=== PATIENT | female | born 1970 | race Caucasian/White ===

== ENCOUNTER 2019-07-15 11:43 | Emergency (ER) | payer BC ==
[2019-07-15] MEDS ORDERED: Sodium Chloride 0.9% 2.5 ML Syringe FLUSH PRN (11:50)
[2019-07-15] MEDS ORDERED: Sodium Chloride 0.9% 10 ML Syringe FLUSH PRN (11:50)
[2019-07-15] MEDS ORDERED: Ketorolac 30 MG/ML SDV IVPUSH ONE (12:18)
[2019-07-15] MEDS ORDERED: Sodium Chloride 0.9% 1,000 ML IV ONE (12:18)
[2019-07-15] MEDS ORDERED: Ondansetron 4 MG/2 ML SDV IVPUSH ONE (12:18)
--- NOTE | 2019-07-15 12:18 | EDM.PDOC ---
ED HPI GENERAL MEDICAL PROBLEM - General Chief Complaint: Back Pain or Injury Stated Complaint: RT SIDE PAIN GOING INTO BACK Time Seen by Provider: 07/15/19 11:46 Source of Information: Reports: Patient History Limitations: Reports: No Limitations - History of Present Illness INITIAL COMMENTS - FREE TEXT/NARRATIVE: HISTORY AND PHYSICAL: History of present illness: Patient is a 48-year-old female presents to the ED today with concern of right sided flank pain. Patient states she's had this issue off and on over the course of several months but over the past 2 days has had an increase in pain and rates it a 9 out of 10. Patient states she's been to several walk-in clinics and has had several chest x-rays which of come back unremarkable. Patient states over the past 2 days the pain is increased and is worsening. Patient states she is woke up in tears due to the pain. Patient states she has a history of hypertension but denies any other health history. Patient denies fever, chills, chest pain, shortness of breath, or cough. Denies headache, neck stiff ness, change in vision, syncope, or near syncope. Denies nausea, vomiting, diarrhea, constipation, or dysuria. Has not noted any blood in urine or stool. Patient has been eating and drinking appropriately. Review of systems: As per history of present illness and below otherwise all systems reviewed and negative. Past medical history: As per history of present illness and as reviewed below otherwise noncontributory. Surgical history: As per history of present illness and as reviewed below otherwise noncontributory. Social history: See social history for further information Family history: As per history of present illness and as reviewed below otherwise noncontributory. Physical exam: General: Patient is alert, oriented, and in no acute distress. Patient sitting comfortably on exam table. HEENT: Atraumatic, normocephalic, pupils equal and reactive bilaterally, negative for conjunctival pallor or scleral icterus, mucous membranes moist, TMs normal bilaterally, throat clear, neck supple, nontender, trachea midline. No drooling or trismus noted. No meningeal signs. No hot potato voice noted. Lungs: Clear to auscultation, breath sounds equal bilaterally, chest nontender. Heart: S1S2, regular rate and rhythm without overt murmur Abdomen: Soft, nondistended. Mild pain of RUQ without guarding. Negative for masses or hepatosplenomegaly. Positive for costovertebral tenderness of the right. Pelvis: Stable nontender. Genitourinary: Deferred. Rectal: Deferred. Skin: Intact, warm, dry. No lesions or rashes noted. Extremities: Atraumatic, negative for cords or calf pain. Neurovascular unremarkable. Neuro: Awake, alert, oriented. Cranial nerves II through XII unremarkable. Cerebellum unremarkable. Motor and sensory unremarkable throughout. Exam nonfocal. Notes: Discussed the importance for follow-up with general surgery and urology as well as a PCP. Voices understanding and is agreeable to plan of care. Denies any further questions or concerns at this time. Diagnostics: CBC, CMP, UA, Lipase, EKG, Chest XR, RUQ ultrasound, Abd/Pelvic CT Therapeutics: NS, Toradol, Zofran Prescription: None Impression: RUQ pain Cholelithiasis Hematuria Plan: 1. You can alternate ibuprofen and Tylenol as directed for pain and discomfort. 2. Follow-up with general surgery and urology/primary care provider as discussed. Return to the ED as needed and as discussed. Definitive disposition and diagnosis as appropriate pending reevaluation and review of above. right middle back Pain Score (Numeric/FACES): 6 - Related Data Allergies Allergy/AdvReac Type Severity Reaction Status Date / Time cyclobenzaprine Allergy Anaphylactic Verified 07/15/19 11:50 [From Flexeril] Shock Home Meds: Home Meds Olmesartan [Benicar] 20 mg PO DAILY 07/15/19 [History] Past Medical History Cardiovascular History: Reports: Hypertension Gastrointestinal History: Reports: GERD Other Musculoskeletal History: right wrist surgery - Infectious Disease History Infectious Disease History: Reports: Chicken Pox - Past Surgical History HEENT Surgical History: Reports: Tonsillectomy GI Surgical History: Reports: Hernia, Abdominal Social & Family History - Family History Family Medical History: Noncontributory - Tobacco Use Smoking Status *Q: Never Smoker - Recreational Drug Use Recreational Drug Use: No ED ROS GENERAL - Review of Systems Review Of Systems: ROS reveals no pertinent complaints other than HPI. ED EXAM, GENERAL - Physical Exam Exam: See Below (See dictation) Course - Vital Signs Last Recorded V/S: Last Vital Signs Temp 36.6 C 07/15/19 11:52 Pulse 74 07/15/19 13:45 Resp 18 07/15/19 13:45 BP 151/84 H 07/15/19 13:45 Pulse Ox 97 07/15/19 13:45 - Orders/Labs/Meds Orders: Active Orders 24 hr Category Date Time Status EKG Documentation Completion [RC] STAT Care 07/15/19 11:50 Active Sodium Chloride 0.9% [Saline Flush] Med 07/15/19 11:50 Active 10 ml FLUSH ASDIRECTED PRN Sodium Chloride 0.9% [Saline Flush] Med 07/15/19 11:50 Active 2.5 ml FLUSH ASDIRECTED PRN Saline Lock Insert [OM.PC] Stat Oth 07/15/19 11:50 Ordered Medication Orders Sodium Chloride (Saline Flush) 10 ml FLUSH ASDIRECTED PRN PRN Reason: Keep Vein Open Last Admin: 07/15/19 12:32 Dose: 10 ml Sodium Chloride (Saline Flush) 2.5 ml FLUSH ASDIRECTED PRN PRN Reason: Keep Vein Open Last Admin: 07/15/19 12:32 Dose: 2.5 ml Labs: Laboratory Tests 07/15/19 07/15/19 07/15/19 Range/Units 12:10 12:10 12:20 WBC 5.65 (4.0-11.0) K/uL RBC 4.44 (4.30-5.90) M/uL Hgb 13.1 (12.0-16.0) g/dL Hct 38.3 (36.0-46.0) % MCV 86.3 (80.0-98.0) fL MCH 29.5 (27.0-32.0) pg MCHC 34.2 (31.0-37.0) g/dL RDW Std Deviation 45.5 (28.0-62.0) fl RDW Coeff of Arron 15 (11.0-15.0) % Plt Count 346 (150-400) K/uL MPV 10.70 (7.40-12.00) fL Neut % (Auto) 56.6 (48.0-80.0) % Lymph % (Auto) 30.3 (16.0-40.0) % [place] % (Auto) 9.6 (0.0-15.0) % Eos % (Auto) 3.0 (0.0-7.0) % Baso % (Auto) 0.5 (0.0-1.5) % Neut # (Auto) 3.2 (1.4-5.7) K/uL Lymph # (Auto) 1.7 (0.6-2.4) K/uL [place] # (Auto) 0.5 (0.0-0.8) K/uL Eos # (Auto) 0.2 (0.0-0.7) K/uL Baso # (Auto) 0.0 (0.0-0.1) K/uL Nucleated RBC % 0.0 /100WBC Nucleated RBCs # 0 K/uL Sodium 142 (136-145) mmol/L Potassium 4.2 (3.5-5.1) mmol/L Chloride 106 (98-107) mmol/L Carbon Dioxide 23.5 (21.0-32.0) mmol/L BUN 10 (7.0-18.0) mg/dL Creatinine 0.8 (0.6-1.0) mg/dL Est Cr Clr Drug Dosing 73.46 mL/min Estimated GFR (MDRD) > 60.0 ml/min Glucose 100 (74-106) mg/dL Calcium 9.0 (8.5-10.1) mg/dL Total Bilirubin 0.4 (0.2-1.0) mg/dL AST 9 L (15-37) IU/L ALT 20 (14-63) IU/L Alkaline Phosphatase 75 (46-116) U/L Total Protein 6.9 (6.4-8.2) g/dL Albumin 3.5 (3.4-5.0) g/dL Globulin 3.4 (2.6-4.0) g/dL Albumin/Globulin Ratio 1.0 (0.9-1.6) Lipase 87 (73-393) U/L Urine Color YELLOW Urine Appearance CLEAR Urine pH 5.5 (5.0-8.0) Ur Specific [place] 1.015 (1.001-1.035) Urine Protein NEGATIVE (NEGATIVE) mg/dL Urine Glucose (UA) NEGATIVE (NEGATIVE) mg/dL Urine Ketones NEGATIVE (NEGATIVE) mg/dL Urine Occult Blood LARGE H (NEGATIVE) Urine Nitrite NEGATIVE (NEGATIVE) Urine Bilirubin NEGATIVE (NEGATIVE) Urine Urobilinogen 0.2 (<2.0) EU/dL Ur Leukocyte Esterase NEGATIVE (NEGATIVE) Urine RBC 5-10 (0-2/HPF) Urine WBC 1-2 (0-5/HPF) Ur Epithelial Cells OCCASIONAL (NONE-FEW) Urine Bacteria RARE (NEGATIVE) Urine HCG, Qual (NEGATIVE) 07/15/19 Range/Units 12:20 WBC (4.0-11.0) K/uL RBC (4.30-5.90) M/uL Hgb (12.0-16.0) g/dL Hct (36.0-46.0) % MCV (80.0-98.0) fL MCH (27.0-32.0) pg MCHC (31.0-37.0) g/dL RDW Std Deviation (28.0-62.0) fl RDW Coeff of Arron (11.0-15.0) % Plt Count (150-400) K/uL MPV (7.40-12.00) fL Neut % (Auto) (48.0-80.0) % Lymph % (Auto) (16.0-40.0) % [place] % (Auto) (0.0-15.0) % Eos % (Auto) (0.0-7.0) % Baso % (Auto) (0.0-1.5) % Neut # (Auto) (1.4-5.7) K/uL Lymph # (Auto) (0.6-2.4) K/uL [place] # (Auto) (0.0-0.8) K/uL Eos # (Auto) (0.0-0.7) K/uL Baso # (Auto) (0.0-0.1) K/uL Nucleated RBC % /100WBC Nucleated RBCs # K/uL Sodium (136-145) mmol/L Potassium (3.5-5.1) mmol/L Chloride (98-107) mmol/L Carbon Dioxide (21.0-32.0) mmol/L BUN (7.0-18.0) mg/dL Creatinine (0.6-1.0) mg/dL Est Cr Clr Drug Dosing mL/min Estimated GFR (MDRD) ml/min Glucose (74-106) mg/dL Calcium (8.5-10.1) mg/dL Total Bilirubin (0.2-1.0) mg/dL AST (15-37) IU/L ALT (14-63) IU/L Alkaline Phosphatase (46-116) U/L Total Protein (6.4-8.2) g/dL Albumin (3.4-5.0) g/dL Globulin (2.6-4.0) g/dL Albumin/Globulin Ratio (0.9-1.6) Lipase (73-393) U/L Urine Color Urine Appearance Urine pH (5.0-8.0) Ur Specific [place] (1.001-1.035) Urine Protein (NEGATIVE) mg/dL Urine Glucose (UA) (NEGATIVE) mg/dL Urine Ketones (NEGATIVE) mg/dL Urine Occult Blood (NEGATIVE) Urine Nitrite (NEGATIVE) Urine Bilirubin (NEGATIVE) Urine Urobilinogen (<2.0) EU/dL Ur Leukocyte Esterase (NEGATIVE) Urine RBC (0-2/HPF) Urine WBC (0-5/HPF) Ur Epithelial Cells (NONE-FEW) Urine Bacteria (NEGATIVE) Urine HCG, Qual NEGATIVE (NEGATIVE) Meds: Medications Generic Name Dose Route Start Last Admin Trade Name Freq PRN Reason Stop Dose Admin Sodium Chloride 10 ml 07/15/19 11:50 07/15/19 12:32 Saline Flush FLUSH 10 ml ASDIRECTED PRN Administration Keep Vein Open Sodium Chloride 2.5 ml 07/15/19 11:50 07/15/19 12:32 Saline Flush FLUSH 2.5 ml ASDIRECTED PRN Administration Keep Vein Open Discontinued Medications Generic Name Dose Route Start Last Admin Trade Name Freq PRN Reason Stop Dose Admin Sodium Chloride 1,000 mls @ 999 mls/hr 07/15/19 12:18 07/15/19 12:28 Normal Saline IV 07/15/19 13:18 999 mls/hr STAT ONE Administration Ketorolac Tromethamine 30 mg 07/15/19 12:18 07/15/19 12:31 Toradol IVPUSH 07/15/19 12:19 30 mg ONETIME ONE Administration Ondansetron HCl 4 mg 07/15/19 12:18 07/15/19 12:30 Zofran IVPUSH 07/15/19 12:19 4 mg ONETIME ONE Administration Departure - Departure Time of Disposition: 14:25 Disposition: Home, Self-Care 01 Clinical Impression: Right upper quadrant pain Cholelithiasis Qualifiers: Cholelithiasis location: gallbladder Cholecystitis presence: without cholecystitis Biliary obstruction: with biliary obstruction Qualified Code(s): K80.21 - Calculus of gallbladder without cholecystitis with obstruction Hematuria Qualifiers: Hematuria type: asymptomatic microscopic Qualified Code(s): R31.21 - Asymptomatic microscopic hematuria - Discharge Information Referrals: PCP,Not In Area [Primary Care Provider] - Forms: ED Department Discharge Additional Instructions: The following information is given to patients seen in the emergency department who are being discharged to home. This information is to outline your options for follow-up care. We provide all patients seen in our emergency department with a follow-up referral. The need for follow-up, as well as the timing and circumstances, are variable depending upon the specifics of your emergency department visit. If you don't have a primary care physician on staff, we will provide you with a referral. We always advise you to contact your personal physician following an emergency department visit to inform them of the circumstance of the visit and for follow-up with them and/or the need for any referrals to a consulting specialist. The emergency department will also refer you to a specialist when appropriate. This referral assures that you have the opportunity for follow-up care with a specialist. All of these measure are taken in an effort to provide you with optimal care, which includes your follow-up. Under all circumstances we always encourage you to contact your private physician who remains a resource for coordinating your care. When calling for follow-up care, please make the office aware that this follow-up is from your recent emergency room visit. If for any reason you are refused follow-up, please contact the [facility] Emergency Department at and asked to speak to the emergency department charge nurse. [facility] [id number] [address] [facility] [address] [place] [address] [facility] Special[facility] - General Surgery Professional Building [address], [address] [place] [address] [facility] - Urology [address] [place] [id number] 1. You can alternate ibuprofen and Tylenol as directed for pain and discomfort. 2. Follow-up with general surgery and urology/primary care provider as discussed. Return to the ED as needed and as discussed. - My Orders Last 24 Hours: My Active Orders 07/15/19 11:50 EKG Documentation Completion [RC] STAT Sodium Chloride 0.9% [Saline Flush] 10 ml FLUSH ASDIRECTED PRN Sodium Chloride 0.9% [Saline Flush] 2.5 ml FLUSH ASDIRECTED PRN Saline Lock Insert [OM.PC] Stat - Assessment/Plan Last 24 Hours: My Active Orders 07/15/19 11:50 EKG Documentation Completion [RC] STAT Sodium Chloride 0.9% [Saline Flush] 10 ml FLUSH ASDIRECTED PRN Sodium Chloride 0.9% [Saline Flush] 2.5 ml FLUSH ASDIRECTED PRN Saline Lock Insert [OM.PC] Stat
[2019-07-15 12:43] LABS: BLOOD UREA NITROGEN,BUN 10 mg/dL (7.0-18.0); CARBON DIOXIDE,CO2 23.5 mmol/L (21.0-32.0); CHLORIDE,CL 106 mmol/L (98-107); GLUCOSE RANDOM 100 mg/dL (74-106); POTASSIUM,K 4.2 mmol/L (3.5-5.1); SODIUM,NA 142 mmol/L (136-145)
--- NOTE | 2019-07-15 14:00 | CR ---
Indication: Shortness of breath. Technique: PA and lateral views the chest were obtained. Comparison: None Findings: The heart is normal in size. The lungs are clear. No infiltrate, pleural effusion, or pneumothorax is identified. Impression: No acute cardiopulmonary process. Dictated by Ondina Nur MD @ Jul 15 2019 1:59PM Signed by Dr. Ondina Nur @ Jul 15 2019 1:59PM
--- NOTE | 2019-07-15 14:07 | CT ---
INDICATION: Right upper quadrant abdominal pain. TECHNIQUE: Noncontrast CT of the abdomen and pelvis. COMPARISON: Correlation is made with a right upper quadrant ultrasound from the same date. FINDINGS: The included lung bases are clear. The unenhanced liver is negative for masses or biliary ductal dilatation. The spleen is not enlarged. The unenhanced pancreas, adrenal glands, and kidneys are within normal limits. Tiny calcification posterior gallbladder image 52 likely a stone. Normal caliber abdominal aorta and iliac arteries. Normal inferior vena cava. Normal appendix. No bowel obstruction ileus. No ascites or lymphadenopathy. The uterus, urinary bladder, and both adnexa are normal. Calcified pelvic phleboliths. Normal appendix. IMPRESSION: 1. Tiny stone within the gallbladder. 2. No acute inflammatory process identified. Please note that all CT scans at this facility use dose modulation, iterative reconstruction, and/or weight-based dosing when appropriate to reduce radiation dose to as low as reasonably achievable. Dictated by Abraham Tavarez MD @ Jul 15 2019 2:00PM Signed by Dr. Abraham Tavarez @ Jul 15 2019 2:05PM
--- NOTE | 2019-07-15 14:09 | US ---
INDICATION: Right upper quadrant abdominal pain. TECHNIQUE: Right upper quadrant ultrasound. FINDINGS: Single tiny echogenic focus along the gallbladder wall reportedly mobile. No sonographic Olmedo`s sign. Normal common bile duct of 4.4 mm. The liver, visualized pancreas, and right kidney are within normal limits. The right kidney measures 12.6 cm. The pancreatic tail is obscured by bowel gas. No right upper quadrant ascites. IMPRESSION: Cholelithiasis. A single stone is identified in the gallbladder. The examination is otherwise negative. Dictated by Abraahm Tavarez MD @ Jul 15 2019 2:06PM Signed by Dr. Abraham Tavarez @ Jul 15 2019 2:07PM
== END 2019-07-15 14:46 | disposition home or self-care (01) ==
LOC: MW.ED 11:43
DX: K80.21 Calculus of gallbladder without cholecystitis with obstruction (principal); R31.21 Asymptomatic microscopic hematuria; I10 Essential (primary) hypertension; Z88.8 Allergy status to other drugs, medicaments and biological substances; Z79.899 Other long term (current) drug therapy
CPT/HCPCS: 36415; 71046; 74176; 76705; 80053; 81001; 81025; 83690; 85025; 93005; 96361; 96374; 96375; 99284; J1885; J2405; J7040

== ENCOUNTER 2021-02-27 12:10 | Emergency (ER) | payer OTHER ==
--- NOTE | 2021-02-27 12:30 | EDM.PDOC ---
ED HPI GENERAL MEDICAL PROBLEM - General Chief Complaint: Respiratory Problem Stated Complaint: COLD Time Seen by Provider: 02/27/21 12:19 Source of Information: Reports: Patient History Limitations: Reports: No Limitations - History of Present Illness INITIAL COMMENTS - FREE TEXT/NARRATIVE: HISTORY AND PHYSICAL: History of present illness: The patient is a 50-year-old female wit a past medical history of HTN and bulging thoracic disc, who presents to the emergency room with complaints of cough and chest congestion for 6 days. Last night she had a sleepless night due to her hands feeling numb and tingly. She also had right calf cramping. She reports that she is fatigued most of the day. She does not identify any modifiers. She states that she felt this way before when she previously had pneumonia, however, she did not experience the bilateral hand numbness. She started taking Augmentin this morning from her previous prescription. her current vitals are SpO2 98%, HR 82 and Blood pressure 139/80. Patient denies any fever, chills, headache, change in vision, syncope or near syncope. Denies any chest pain. Denies any abdominal pain, nausea, vomiting, diarrhea, constipation or dysuria. Has not noted any blood in urine or stool. Patient has been eating and drinking appropriately. Review of systems: As per history of present illness and below otherwise all systems reviewed and negative. Past medical history: As per history of present illness and as reviewed below otherwise noncontributory. Surgical history: As per history of present illness and as reviewed below otherwise noncontributory. Social history: See social history for further information Family history: As per history of present illness and as reviewed below otherwise noncontribu tory. Physical exam: General: Well developed and well nourished. Alert and orientated x 3. Nontoxic in appearance and in no acute distress. Vital signs are stable and have been reviewed by me. Nursing notes were reviewed. HEENT: Atraumatic, normocephalic, pupils equal and reactive bilaterally, negative for conjunctival pallor or scleral icterus, mucous membranes moist, TMs normal bilaterally, throat clear, neck supple, nontender, trachea midline. No drooling or trismus noted. No meningeal signs. No hot potato voice noted. Lungs: Clear to auscultation bilaterally. No wheezes, rales, or rhonchi. Chest nontender. Normal work of breathing, no accessory muscles used. Heart: S1S2, regular rate and rhythm without overt murmur, gallops, or rubs. No JVD. No peripheral edema Abdomen: Soft, nondistended, nontender. Normoactive bowel sounds. Negative for masses or costovertebral tenderness. Skin: Intact, warm, dry. No lesions or rashes noted. Hematologic: No petechiae or purpra. Mucosa appropriate color and normal nail bed color and refill. Extremities: Atraumatic, moves all extremities per self without difficulty or deficits, negative for cords or calf pain. Neurovascular unremarkable. Neuro: Awake, alert, oriented. Cranial nerves II through XII unremarkable. Cerebellum unremarkable. Motor and sensory unremarkable throughout. Exam nonfocal. Psychiatric: Mood and affect are appropriate. Normal thought process. Answering questions appropriately. Notes: *This patient was seen and evaluated during the 2019 SARS-CoV-2 novel coronavirus pandemic period. Community viral transmission is ongoing at time of this encounter and the emergency department is operating under pandemic response procedures. After discussion and exam the patient is agreeable to labs, chest x-ray, EKG and COVID test. CXR findings: Negative chest per the Radiologist. CBC is unremarkable. EKG is normal sinus rhythm. COVID is negative. The patient's neuro exam was negative. Due to patient's back history I will prescribe her prednisone 40 daily for 5 days. I educated the patient on the not taking an NSAID with her prednisone. She is to follow-up with her primary care provider for further work-up. I have talked with the patient about today's findings, in addition to providing specific details for plan of care. Reassessment at the time of disposition demonstrates that the patient is in no acute distress. The patient is stable for discharge, counseling was provided and we discussed in great detail signs and symptoms that would prompt them to return to the Emergency Department. Medication, follow up and supportive care measures were reviewed and discussed. Voices understanding and is agreeable to plan of care. Denies any further questions or concerns at this time. Diagnostics: CBC, CMP, EKG, CXR, COVID Prescription: Prednisone 40 mg daily for 5 days Impression: Hand numbness, cough I educated the patient on not taking Plan: 1. You were evaluated today on an emergent basis. Your complaint of bilateral hand numbness and cough were evaluated today. Your lab work was normal and your chest x-ray was negative for pneumonia. Your COVID was negative. Your neurological evaluation was normal. You declined the head CT, if you feel any further symptoms please return to the ED. I am giving you prednisone 40mg daily for 5 days. Do not take an NSAID, such as Motrin or Aleve while on the Prednisone. Please follow up with your primary care provider as soon as possible for further workup. 2. You can alternate Tylenol and ibuprofen as needed for pain and fever management. 3. We encourage you to follow up with your primary care provider and/or recommended specialist in the next few days for re-evaluation and further care/management. 4. If your symptoms should worsen, new symptoms develop or any of the signs and symptoms we discussed should arise please return to the emergency room or call 911 (if needed). Definitive disposition and diagnosis as appropriate pending reevaluation and review of above. general Pain Score (Numeric/FACES): 2 - Related Data Allergies Allergy/AdvReac Type Severity Reaction Status Date / Time cyclobenzaprine Allergy Anaphylactic Verified 02/27/21 12:29 [From Flexeril] Shock Home Meds: Home Meds Olmesartan [Benicar] 20 mg PO DAILY 07/15/19 [History] predniSONE [Prednisone] 40 mg PO DAILY 5 Days #10 tablet 02/27/21 [Rx] Past Medical History Cardiovascular History: Reports: Hypertension Gastrointestinal History: Reports: GERD Other Musculoskeletal History: right wrist surgery - Infectious Disease History Infectious Disease History: Reports: Chicken Pox - Past Surgical History HEENT Surgical History: Reports: Tonsillectomy GI Surgical History: Reports: Hernia, Abdominal Social & Family History - Family History Family Medical History: No Pertinent Family History ED ROS GENERAL - Review of Systems Review Of Systems: Comprehensive ROS is negative, except as noted in HPI. ED EXAM, GENERAL - Physical Exam Exam: See Below (See dictation) Course - Vital Signs Last Recorded V/S: Last Vital Signs Temp 97.6 F 02/27/21 12:30 Pulse 73 02/27/21 15:00 Resp 18 02/27/21 15:00 BP 128/81 02/27/21 15:00 Pulse Ox 98 02/27/21 15:00 - Orders/Labs/Meds Labs: Laboratory Tests 02/27/21 02/27/21 02/27/21 Range/Units 13:00 13:45 13:45 WBC 6.35 (4.0-11.0) K/uL RBC 4.26 L (4.30-5.90) M/uL Hgb 12.0 (12.0-16.0) g/dL Hct 36.5 (36.0-46.0) % MCV 85.7 (80.0-98.0) fL MCH 28.2 (27.0-32.0) pg MCHC 32.9 (31.0-37.0) g/dL RDW Std Deviation 50.0 (28.0-62.0) fl RDW Coeff of Arron 16 H (11.0-15.0) % Plt Count 416 H (150-400) K/uL MPV 10.10 (7.40-12.00) fL Neut % (Auto) 60.6 (48.0-80.0) % Lymph % (Auto) 29.6 (16.0-40.0) % [place] % (Auto) 7.9 (0.0-15.0) % Eos % (Auto) 1.6 (0.0-7.0) % Baso % (Auto) 0.3 (0.0-1.5) % Neut # (Auto) 3.9 (1.4-5.7) K/uL Lymph # (Auto) 1.9 (0.6-2.4) K/uL [place] # (Auto) 0.5 (0.0-0.8) K/uL Eos # (Auto) 0.1 (0.0-0.7) K/uL Baso # (Auto) 0.0 (0.0-0.1) K/uL Nucleated RBC % 0.0 /100WBC Nucleated RBCs # 0 K/uL Sodium 140 (136-145) mmol/L Potassium 4.0 (3.5-5.1) mmol/L Chloride 106 (98-107) mmol/L Carbon Dioxide 25.4 (21.0-32.0) mmol/L BUN 9 (7.0-18.0) mg/dL Creatinine 0.7 (0.6-1.0) mg/dL Est Cr Clr Drug Dosing 82.10 mL/min Estimated GFR (MDRD) > 60.0 ml/min Glucose 99 (74-106) mg/dL Calcium 8.5 (8.5-10.1) mg/dL Total Bilirubin 0.3 (0.2-1.0) mg/dL AST 15 (15-37) IU/L ALT 26 (14-63) IU/L Alkaline Phosphatase 88 (46-116) U/L Total Protein 7.4 (6.4-8.2) g/dL Albumin 3.4 (3.4-5.0) g/dL Globulin 4.0 (2.6-4.0) g/dL Albumin/Globulin Ratio 0.9 (0.9-1.6) SARS-CoV-2 RNA (ANA) NEGATIVE (NEGATIVE) Departure - Departure Time of Disposition: 14:46 Disposition: Home, Self-Care 01 Clinical Impression: Cough, Hand numbness - Discharge Information *PRESCRIPTION DRUG MONITORING PROGRAM REVIEWED*: Not Applicable *COPY OF PRESCRIPTION DRUG MONITORING REPORT IN PATIENT RONNIE: Not Applicable Prescriptions: predniSONE [Prednisone] 40 mg PO DAILY 5 Days #10 tablet Instructions: Cough, Adult Referrals: Moncho Colon MD [Primary Care Provider] - Forms: ED Department Discharge Additional Instructions: The following information is given to patients seen in the emergency department who are being discharged to home. This information is to outline your options for follow-up care. We provide all patients seen in our emergency department with a follow-up referral. The need for follow-up, as well as the timing and circumstances, are variable depending upon the specifics of your emergency department visit. If you don't have a primary care physician on staff, we will provide you with a referral. We always advise you to contact your personal physician following an emergency department visit to inform them of the circumstance of the visit and for follow-up with them and/or the need for any referrals to a consulting specialist. The emergency department will also refer you to a specialist when appropriate. This referral assures that you have the opportunity for follow-up care with a specialist. All of these measure are taken in an effort to provide you with optimal care, which includes your follow-up. Under all circumstances we always encourage you to contact your private physician who remains a resource for coordinating your care. When calling for follow-up care, please make the office aware that this follow-up is from your recent emergency room visit. If for any reason you are refused follow-up, please contact the [facility] Emergency Department at and asked to speak to the emergency department charge nurse. [facility] [address] [place] [address] [facility] [address] [place] [address] Plan: 1. You were evaluated today on an emergent basis. Your complaint of bilateral hand numbness and cough were evaluated today. Your lab work was normal and your chest x-ray was negative for pneumonia. Your COVID was negative. Your neurological evaluation was normal. You declined the head CT, if you feel any further symptoms please return to the ED. I am giving you prednisone 40mg daily for 5 days. Do not take an NSAID, such as Motrin or Aleve while on the Prednisone. Please follow up with your primary care provider as soon as possible for further workup. 2. You can alternate Tylenol and ibuprofen as needed for pain and fever management. 3. We encourage you to follow up with your primary care provider and/or recommended specialist in the next few days for re-evaluation and further care/management. 4. If your symptoms should worsen, new symptoms develop or any of the signs and symptoms we discussed should arise please return to the emergency room or call 911 (if needed). Sepsis Event Note (ED) - Focused Exam Vital Signs: Vital Signs Temp Pulse Resp BP Pulse Ox 02/27/21 15:00 73 18 128/81 98 02/27/21 12:30 97.6 F 76 18 139/80 99
--- NOTE | 2021-02-27 13:03 | PCM.EKG ---
#1 Interpretation EKG Date: 02/27/21 Time: 13:02 EKG Interpretation Comments: Sinus rhythm rate of 72 Q waves inferiorly suggest potential for old infarct. No acute ischemia otherwise normal axis and intervals.
--- NOTE | 2021-02-27 13:34 | CR ---
INDICATION: Cough dyspnea TECHNIQUE: Two view chest. FINDINGS: The lungs are clear. The heart, mediastinum and pulmonary vessels are of normal size. There is no evidence of pleural disease. IMPRESSION: Negative chest. Dictated by Shavon Kohli MD @ Feb 27 2021 1:33PM Signed by Dr. Shavon Kohli @ Feb 27 2021 1:34PM
[2021-02-27 14:24] LABS: BLOOD UREA NITROGEN,BUN 9 mg/dL (7.0-18.0); CARBON DIOXIDE,CO2 25.4 mmol/L (21.0-32.0); CHLORIDE,CL 106 mmol/L (98-107); GLUCOSE RANDOM 99 mg/dL (74-106); SODIUM,NA 140 mmol/L (136-145)
== END 2021-02-27 15:04 | disposition home or self-care (01) ==
LOC: MW.ED 12:10
DX: R05 Cough (principal); R20.0 Anesthesia of skin; I10 Essential (primary) hypertension; Z20.822 Contact with and (suspected) exposure to COVID-19; Z79.899 Other long term (current) drug therapy; Z88.6 Allergy status to analgesic agent
CPT/HCPCS: 36415; 71046; 71046-26; 80053; 85025; 93005; 99283; 99284-25; U0002

== ENCOUNTER 2022-07-23 18:34 | Emergency (ER) | payer OTHER ==
[2022-07-23 21:11] LABS: CARBON DIOXIDE,CO2 24.3 mmol/L (21.0-32.0)
== END 2022-07-23 21:19 | disposition home or self-care (01) ==
LOC: MW.ED 18:34
DX: N92.0 Excessive and frequent menstruation with regular cycle (principal); K21.9 Gastro-esophageal reflux disease without esophagitis
CPT/HCPCS: 36415; 80053; 81001; 84703; 85025; 99283; 99284

== ENCOUNTER 2023-02-27 06:29 | Emergency (ER) | payer OTHER ==
[2023-02-27] MEDS ORDERED: Sodium Chloride 0.9% 2.5 ML Syringe FLUSH PRN (06:43)
[2023-02-27] MEDS ORDERED: Sodium Chloride 0.9% 10 ML Syringe FLUSH PRN (06:43)
[2023-02-27] MEDS ORDERED: Aspirin 325 MG Tab PO ONE (06:45)
[2023-02-27 07:28] LABS: CARBON DIOXIDE,CO2 23.1 mmol/L (21.0-32.0); POTASSIUM,K 4.1 mmol/L (3.5-5.1)
[2023-02-27] MEDS ORDERED: Alum Hydro/Mag Hydro/Simeth XS 15 ML, Lidocaine 2% 5 ML PO ONE ×2 (07:37)
[2023-02-27] MEDS ORDERED: Ketorolac 30 MG/ML SDV IVPUSH ONE (07:40)
[2023-02-27] MEDS ORDERED: fentaNYL 50 MCG/ML SDV IVPUSH ONE (09:14)
[2023-02-27] MEDS ORDERED: Ondansetron 4 MG/2 ML SDV IVPUSH ONE (09:14)
[2023-02-27] MEDS ORDERED: Pantoprazole 40 MG in Sodium Chloride 0.9% 10 ML IVPUSH ONE (09:14)
== END 2023-02-27 10:53 | disposition home or self-care (01) ==
LOC: MW.ED 06:29
DX: R07.2 Precordial pain (principal); I10 Essential (primary) hypertension; Z88.1 Allergy status to other antibiotic agents; Z88.8 Allergy status to other drugs, medicaments and biological substances; Z79.899 Other long term (current) drug therapy
CPT/HCPCS: 36415; 71045; 80053; 84484; 85025; 85379; 93005; 96374; 96375; 99285; A9270; C9113; J2405; J3490; 93010; 99284